=== PATIENT | male | born 2000 | race Hispanic/Latino ===

== ENCOUNTER 2023-01-24 17:18 | Emergency (ER) | payer SELFPAY ==
[~2023-01-24] VITALS: Ht 167.6 cm; Wt 71.4 kg
[2023-01-24 18:34] VITALS: BP 135/89
[2023-01-24] MEDS ORDERED: MUPIROCIN2 % EX ×2 (19:14)
[2023-01-24 20:16] VITALS: BP 135/89
== END 2023-01-24 20:21 | disposition home or self-care (01) | DRG 603 ==
LOC: ED 17:18
DX: L01.00 Impetigo, unspecified (principal)